=== PATIENT | female | born 1985 | race Caucasian/White ===

== ENCOUNTER 2025-02-21 09:55 | Outpatient (AMB) | payer OTHER, SELFPAY ==
--- NOTE | 2025-02-21 09:57 | A.OFFPC_ITS ---
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 Required: No Accompanied by: Self / Same As Patient Allergies No Known Allergies Allergy (Verified 02/21/25 10:03) Tobacco use date assessed: 02/21/25 Dental Screening Dental Screen Date: 02/21/25 Did you have a dental visit in the last 12 months?: Yes Did you have a dental problem in the last 6 months where you did not have access to dental care?: Yes Was dental information given to patient?: Patient has dentist HPI HPI Comments History of Present Illness Details Consent Patient was informed and verbally consented to the use of an ambient scribe for clinic note documentation during this visit. 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 - Family status: Mother of three childre n. - Substance use: Rare alcohol consumptio n, denies smoking and drug use. - Exercise: Engages in regular physical activity. - Nutrition: Eats a balanced diet, avoid s excessive carbohydrates and gluten due to intolerance. Family History: - No family history of cancer. Review of Systems - General: Denies fatigue or malaise. - Gastrointestinal: Reports intolerance to carbohydrates and gluten, causing lethargy and fullness. - Genitourinary: Denies urinary symptoms , reports absence of menstrual cycles due to contraceptive device. 10-point ROS reviewed and negative excep t as noted in HPI Past Medical History - No significant past medical history re ported. Health Maintenance - Screening mammogram recommended for east cancer prevention. - Pap smear recommended for cervical can cer screening. - Comprehensive metabolic panel to asses s overall health. - Lipid panel to evaluate cholesterol le vels. - Hepatitis B, Hepatitis C, and HIV scre ening for infectious disease prevention. - Thyroid function test to assess endocr ine health. - Vitamin D, B12, and folate levels to e valuate nutritional status. - Chlamydia, gonorrhea, and syphilis scr eening for sexually transmitted infections. Physical Exam General: Well-appearing, in no acute distress. Vital signs: Within normal limits. HEENT: Normocephalic, atraumatic. PERRLA, EOMI. Conjunctiva clear, sclera anicteric. Oropharynx clear, mucous membranes moist. TMs intact bilaterally. Neck: Supple, no lymphadenopathy, no thyromegaly, no JVD or carotid bruits. Cardiovascular: RRR, normal S1/S2, no murmurs, rubs, or gallops. Peripheral pulses 2+ and symmetric. No edema. Respiratory: Lungs clear to auscultation bilaterally, no wheezes, rales, or rhonchi. Normal effort. Abdomen: Soft, non-tender, non-distended. Normoactive bowel sounds. No hepatosplenomegaly, no masses. MSK: Full range of motion, no joint swelling or deformity. Normal gait. Skin: Warm, dry, intact. No rashes, lesions, or pallor. Neuro: Alert and oriented x3. Cranial nerves II-XII intact. Strength 5/5 throughout. Sensation intact. Reflexes 2+ symmetric. Normal coordination and gait. Psych: Appropriate mood and affect. Normal judgment and insight. Plan 1. Screening Mammogram - Schedule a screening mammogram at [facility]. 2. Pap Smear - Schedule a Pap smear with the [facility] team. 3. Preventative Care: Comprehensive [place] bolic Panel - Conduct comprehensive metabolic panel to assess liver, kidney function, and electrolytes. 4. Preventative Care: Lipid Panel - Perform lipid panel to evaluate choles terol and triglyceride levels. 5. Preventative Care: Hepatitis B, Hepat itis C, And Hiv Screening - Screen for Hepatitis B, Hepatitis C, a nd HIV as part of routine health maintenance. 6. Preventative Care: Thyroid Function T est - Check thyroid function to ensure wanda l endocrine health. 7. Preventative Care: Vitamin D, B12, An d Folate Levels - Assess Vitamin D, B12, and folate leve ls to evaluate nutritional status. 8. Preventative Care: Chlamydia, Gonorrh ea, And Syphilis Screening - Conduct screening for Chlamydia, gonor lizet, and syphilis as part of sexual health maintenance. Discussion Notes During the consultation, I discussed the importance of preventative care with the patient, including the need for a screening mammogram and Pap smear. We reviewed the comprehensive metabolic panel and other blood tests to be conducted, explaining their role in assessing overall health. I also informed her about the process for scheduling these tests and screenings, emphasizing the importance of maintaining regular health check-ups. Patient Instructions - Schedule a screening mammogram at [facility]. - Arrange for a Pap smear with the [facility] medicine team. - Follow up with the lab for blood tests as ordered. - Maintain a balanced diet and regular e xercise routine. Medical Decision Making In evaluating the patient's health, I prioritized preventative care measures due to her age and lack of recent medical evaluations. The decision to conduct a comprehensive metabolic panel and other screenings was based on the need to establish a baseline for her health status. The goal is to identify any potential health issues early and ensure she remains in good health, considering her active lifestyle and dietary habits. Total time spent caring for the patient today was 30 minutes. This includes time spent before the visit reviewing the chart, time spent documenting, and time spent reviewing laboratory results, diagnostic imaging, medications, performing a medically necessary evaluation, counseling on diagnoses, care coordination, ordering appropriate tests. [facility] Family History (Updated 02/21/25 @ 10:05 by Carlos Alberto Weber MA) Father Stroke Mother High cholesterol Social History Housing: House Patient Tobacco Use Status: Never used Tobacco service: No Current occupational status: employed Cognitive needs: No Hearing needs: No Vision needs: No Questionnaire PHQ-9 Over the last 2 weeks, how often have you been bothered by any of the following problems? 1. Little interest or pleasure in doing things: not at all 2. Feeling down, depressed, or hopeless: not at all 3. Trouble falling or staying asleep, or sleeping too much: not at all 4. Feeling tired or having little energy: not at all 5. Poor appetite or overeating: not at all 6. Feeling bad about yourself - or that you are a failure or have let yourself or your family down: not at all 7. Trouble concentrating on things, such as reading the newspaper or watching television: not at all 8. Moving or speaking so slowly that other people could have noticed. Or the opposite - being so fidgety or restless that you have been moving around a lot more than usual: not at all 9. Thoughts that you would be better off or of hurting yourself in some way: not at all Total score: 0 Source: Developed by Drs. Vick Mcdonald, Vikki Kapadia, Howard Schuler and colleagues, with an educational ovi from [employer]. Thrive Questionnaire Date Thrive assessed: 02/21/25 I am a: Patient What is your living situation today?: I have a steady place to live Within the past 12 months, did the food you bought not last and you didn't have the money to get more?: Never true Within the past 12 months, did you worry whether your food would run out before you got money to buy more?: Never true Do you have trouble paying for medicines?: No Do you have trouble getting transportation to medical appointments?: No Do you have trouble paying your heating and electricity bill?: I choose not to answer this question Do you have trouble taking care of your child, family member or friend?: No Are you currently unemployed and looking for a job?: No Are you interested in more education?: Yes Please select the resources that you would like help with: None Currently or been in a relationship where the following occur: No concerns reported THRIVE Score: 0 AUDIT C Alcohol Use Questionnaire (AUDIT-C) 1. How often do you have a drink containing alcohol?: Monthly or less 2. How many drinks containing alcohol do you have on a typical day when you are drinking?: 1 or 2 3. How often do you have six or more drinks on one occasion?: Never Total Score: 1 LIAN-7 AMB Questionnaire LIAN-7 Date LIAN - 7 assessed: 02/21/25 Feeling nervous, anxious, or on edge: 0 = Not at all Not being able to stop or control worryin = Not at all Worrying too much about different things: 0 = Not at all Trouble relaxin = Not at all Being so restless that it is hard to sit still: 0 = Not at all Becoming easily annoyed or irritable: 0 = Not at all Feeling afraid as if something awful might happen: 0 = Not at all Total LIAN-7 score (0-4 normal; 5-9 mild; 10-14 moderate; 15-21 severe): 0 Source: Developed by Drs. Vick Mcdonald, Howard Wilderoenke and colleagues, with an educational ovi from [employer]. Physical exam (Primary Care) Vital Signs: Last Vital Signs Temp 98 F 02/21/25 10:03 Pulse 64 02/21/25 10:03 Resp 16 02/21/25 10:03 BP 109/61 02/21/25 10:03 Pulse Ox 97 02/21/25 10:03 Oxygen Delivery Method Room Air 02/21/25 10:03 BMI result Body Mass Index 23.2 Tobacco/Smoking Status: Tobacco use Status Tobacco use date assessed 02/21/25 02/21/25 10:03 Patient Tobacco Use Status Never used Tobacco 02/21/25 10:03 PHQ-9: PHQ-9 Score PHQ-9: Total score 0 02/21/25 10:03 Thrive Assessment: Date of Thrive Assessment Date Thrive assessed 02/21/25 02/21/25 10:03 Currently or been in a relationship where the following occur: No concerns reported Coding Level of Care Code New Pt Level 4 (61798) Diagnoses Carbohydrate intolerance K90.49 Gluten intolerance K90.41 Screening for breast cancer Z12. Assessment & Plan Assessment & Plan (1) Carbohydrate intolerance: Code(s): K90.49 - Malabsorption due to intolerance, not elsewhere classified (2) Gluten intolerance: Code(s): K90.41 - Non-celiac gluten sensitivity (3) Screening for breast cancer: Code(s): Z12.39 - Encounter for other screening for malignant neoplasm of breast Plan Orders: Orders Hemoglobin A1c Today Z. - Encounter for screening, unspecified Hepatitis B Surface Antibody Today Z. - Encounter for screening, unspecified Hepatitis B Surface Antigen Today Z13. - Encounter for screening, unspecified Hepatitis C Antibody Today Z13. - Encounter for screening, unspecified HIV Ab/Ag Today Z13. - Encounter for screening, unspecified UA CC w/rflx Micro + Cult Today Z13. - Encounter for screening, unspecified Syphilis Screen Today Z13. - Encounter for screening, unspecified Other Ref Test - Misc Today Z13. - Encounter for screening, unspecified MM screening mammo BI Today Z12.31 - Encounter for screening mammogram for malignant neoplasm of breast Complete Blood Count Auto Diff Today Z13. - Encounter for screening, unspecified Comprehensive Met. Panel Today Z13.9 - Encounter for screening, unspecified Magnesium Today Z13.9 - Encounter for screening, unspecified TSH reflex Free T4 Today Z13.9 - Encounter for screening, unspecified Vitamin B12 and Folate Today Z13.9 - Encounter for screening, unspecified Vitamin D 1,25 dihydroxy Today Z13.9 - Encounter for screening, unspecified CT NG by PCR Urine Today Z13.9 - Encounter for screening, unspecified
[2025-02-21 10:03] VITALS: BP 109/61; PULSE 64; RESP 16; TEMP 36.6; O2SAT 97; BMI 23.2
== END 2025-02-21 10:26 | disposition home or self-care (01) ==
PROVIDERS: Visit Provider Student in an Organized Health Care Education/Training Program
DX: K90.49 Malabsorption due to intolerance, not elsewhere classified (principal); K90.41 Non-celiac gluten sensitivity; Z12.39 Encounter for other screening for malignant neoplasm of breast

== ENCOUNTER 2025-02-21 09:55 | Outpatient (REF) | payer OTHER, SELFPAY ==
[2025-02-21 13:14] LABS: Appearance Urine Clear; Glucose Urine UA Negative (Negative); PH 7.5 (5.0-9.0); Specific Gravity - Urine <= 1.005 (1.005-1.025); UMIC TRIGGER UACC YES
[2025-02-21 13:16] LABS: MANUAL DIFF FLAG NO
[2025-02-21 13:29] LABS: Hematocrit 41.3 % (37.0-47.0); Hemoglobin 14.2 g/dl (12.0-16.0); Imm Gran Abs Auto 0.01 X10*3/uL (0.00-0.03); Imm Gran Pct Auto 0.2 % (0.0-0.4); Lymphocytes Absolute Auto 1.3 X10*3/uL (1.2-4.9); Mean Corpuscular HGB Conc 34.4 g/dl (31.0-35.0); Mean Corpuscular Hemoglobin 30.7 pg (27.0-33.0); Mean Corpuscular Volume 89.4 fL (80.0-98.0); NRBC Abs Auto 0.000 X10*3/uL (0.0-0.012); NRBC Pct Auto 0.0 /100WBC (0.0-0.2); Platelet Count 203 X10*3/uL (160-400); Red Blood Count 4.62 X10*6/uL (4.20-5.50); White Blood Count 4.5 X10*3/uL (4.8-10.8)
[2025-02-21 14:15] LABS: Folate 12.7 ng/mL (> or = 4.0); Vitamin B12 681 pg/mL (200-900)
[2025-02-21 14:16] LABS: Alanine Aminotransferase 20 U/L (0-31); Albumin Level 4.9 g/dL (3.5-5.0); Alkaline Phosphatase 42 U/L (39-117); Anion Gap 10 (12-20); Aspartate Amino Transferase 26 U/L (5-31); Blood Urea Nitrogen 15 mg/dL (9-16); Calcium 9.8 mg/dL (8.4-10.2); Carbon Dioxide 27 mmol/L (22-29); Chloride 108 mmol/L (96-108); Estimated Glomerular Filt Rate > 60; Magnesium 2.2 mg/dL (1.6-2.6); Potassium 4.5 mmol/L (3.3-5.1); Sodium 140 mmol/L (135-145); Total Protein 7.4 g/dL (6.5-8.0)
[2025-02-21 16:19] LABS: CT PCR Urine NOT DETECTED (Not Detect.); NG PCR Urine NOT DETECTED (Not Detect.)
[2025-02-22 03:41] LABS: Syphilis Screen Nonreactive (Nonreactive)
[2025-02-22 03:51] LABS: HBS Num1 0.97 mIU/mL (0-7.99); HBsAGNum1 0.47 S/CO (0.00-0.99); HIV Num 1 0.04 S/CO (0.00-0.99); Hepatitis B Surface Antigen Negative (Negative); ~HepC Num1 0.08 S/CO (0.00-0.79); ~Hepatitis B Surface Antibody NONREACTIVE (Nonreactive); ~Hepatitis C Antibody Nonreactive (Nonreactive)
[2025-02-25 12:42] LABS: VITAMIN D (1,25 OH) D3 42 pg/mL; Vit D (1,25-Dihydroxy) Total 42 pg/mL (18-72); Vitamin D (1,25 OH) D2 <8 pg/mL
== END 2025-02-21 09:56 | disposition home or self-care (01) ==
LOC: HO.HKASLDS 09:55
PROVIDERS: PCP Student in an Organized Health Care Education/Training Program; Visit Provider Student in an Organized Health Care Education/Training Program
DX: Z13.9 Encounter for screening, unspecified (principal); Z12.39 Encounter for other screening for malignant neoplasm of breast; K90.49 Malabsorption due to intolerance, not elsewhere classified; K90.41 Non-celiac gluten sensitivity
CPT/HCPCS: 80053; 81001; 81003; 82607; 82652; 82746; 83036; 83735; 84443; 85025; 86631; 86632; 86706; 86780; 86803; 87340; 87389; 87491; 87591

== ENCOUNTER 2025-03-09 16:25 | Outpatient (AMB) | payer OTHER, SELFPAY ==
[2025-03-09 16:30] VITALS: BP 108/64; PULSE 69; RESP 16; TEMP 36.7; O2SAT 96; BMI 22.9
--- NOTE | 2025-03-09 16:30 | A.OFFPC_ITS ---
Vital Signs 03/09/25 16:30 Height 5 ft 3.78 in Weight 132 lb 8 oz BMI 22.9 BP 108/64 Blood Pressure Location Rt brachial Position Sitting Respiration 16 Pulse 69 Pulse Source Pulse Oximeter Temp 98.1 F Temp Source Oral Pulse Oximetry (%) 96 Oxygen Delivery Method Room Air Intake Visit Reasons: 2 wk f/u Allergies No Known Allergies Allergy (Verified 03/09/25 16:31) Medication List - Last Reconciled 03/10/25 by Allen Fu MD No Known Home Meds Tobacco use date assessed: 02/21/25 Dental Screening Dental Screen Date: 02/21/25 HPI HPI Comments History of Present Illness Details History of Present Illness The patient is a 40-year-old female presenting for review of laboratory results and health maintenance. Vaginal Lump: The patient reports noticing a lump in the vaginal area a few weeks ago. She describes it as a mobile lump located on the side, internally but not high up. It is not associated with pain or bleeding, and its prominence seems to vary, feeling more prevalent on some days. The patient expressed concern after researching her symptoms online. Social History: - Family Status: The patient has three c tawandafrankie. - Exercise: She goes to the gym. - Level of Activity: Describes herself a s busy and active. Diagnostic Results: - Complete blood count: Normal, with no evidence of anemia or coagulation issues. - Comprehensive metabolic panel: Normal sodium, potassium, chloride, and renal function. - Hemoglobin A1c: Normal. - Calcium: Normal. - Magnesium: Normal. - Liver function tests: Normal. - Vitamin B12: Normal. - Thyroid function tests: Normal. - Folate: Normal. - Urinalysis: Normal. - Lipid panel: pending Past Medical History Health Maintenance - The patient will schedule an appointme nt for a Pap smear. - The patient was advised to call and ch massimo on the status of her mammogram order and to schedule the procedure. - Staff will provide the patient with th e necessary contact information for scheduling her mammogram. [facility] Family History (Updated 02/21/25 @ 10:05 by Carlos Alberto Weber MA) Father Stroke Mother High cholesterol Social History Housing: House Patient Tobacco Use Status: Never used Tobacco service: No Current occupational status: employed Cognitive needs: No Hearing needs: No Vision needs: No Questionnaire Thrive Questionnaire Date Thrive assessed: 02/21/25 I am a: Patient What is your living situation today?: I have a steady place to live Within the past 12 months, did the food you bought not last and you didn't have the money to get more?: Never true Within the past 12 months, did you worry whether your food would run out before you got money to buy more?: Never true Do you have trouble paying for medicines?: No Do you have trouble getting transportation to medical appointments?: No Do you have trouble paying your heating and electricity bill?: I choose not to answer this question Do you have trouble taking care of your child, family member or friend?: No Do you have trouble with day-to-day activities such as bathing, preparing meals, shopping, managing finances, etc.?: No Are you currently unemployed and looking for a job?: No Are you interested in more education?: Yes Please select the resources that you would like help with: None Currently or been in a relationship where the following occur: No concerns reported THRIVE Score: 0 LIAN-7 AMB Questionnaire LIAN-7 Date LIAN - 7 assessed: 02/21/25 Source: Developed by Drs. Vick Mcdonald, Vikki Kapadia, Howard Schuler and colleagues, with an educational ovi from [employer] Review of Systems Narrative Review of Systems - Genitourinary: Reports a mobile lump inside the vagina, present for a few weeks. - Denies pain or bleeding. - Constitutional: Reports feeling well. 10-point ROS reviewed and negative except as noted in HPI Physical exam (Primary Care) Vital Signs: Last Vital Signs Temp 98.1 F 03/09/25 16:30 Pulse 69 03/09/25 16:30 Resp 16 03/09/25 16:30 BP 108/64 03/09/25 16:30 Pulse Ox 96 03/09/25 16:30 Oxygen Delivery Method Room Air 03/09/25 16:30 BMI result Body Mass Index 22.9 Tobacco/Smoking Status: Tobacco use Status Tobacco use date assessed 02/21/25 03/09/25 16:40 Patient Tobacco Use Status Never used Tobacco 03/09/25 16:40 Thrive Assessment: Date of Thrive Assessment Date Thrive assessed 02/21/25 03/09/25 16:40 Currently or been in a relationship where the following occur: No concerns reported Narrative Physical Exam General: Well-appearing, in no acute distress. Vital signs: Within normal limits. HEENT: Normocephalic, atraumatic. PERRLA, EOMI. Conjunctiva clear, sclera anicteric. Oropharynx clear, mucous membranes moist. TMs intact bilaterally. Neck: Supple, no lymphadenopathy, no thyromegaly, no JVD or carotid bruits. Cardiovascular: RRR, normal S1/S2, no murmurs, rubs, or gallops. Peripheral pulses 2+ and symmetric. No edema. Respiratory: Lungs clear to auscultation bilaterally, no wheezes, rales, or rhonchi. Normal effort. Abdomen: Soft, non-tender, non-distended. Normoactive bowel sounds. No hepatosplenomegaly, no masses. MSK: Full range of motion, no joint swelling or deformity. Normal gait. Skin: Warm, dry, intact. No rashes, lesions, or pallor. Neuro: Alert and oriented x3. Cranial nerves II-XII intact. Strength 5/5 throughout. Sensation intact. Reflexes 2+ symmetric. Normal coordination and gait. Psych: Appropriate mood and affect. Normal judgment and insight. Coding Level of Care Code Est Pt Level 3 (12988) Diagnoses Abnormal urine R82.90 Vaginal lump N94.9 Assessment & Plan Assessment & Plan (1) Abnormal urine: Code(s): R82.90 - Unspecified abnormal findings in urine (2) Vaginal lump: Code(s): N94.9 - Unspecified condition associated with female genital organs and menstrual cycle Plan Consent Patient was informed and verbally consented to the use of an ambient scribe for clinic note documentation during this visit. Plan 1. Vaginal Lump - The patient's reported vaginal lump will be evaluated during her upcoming appointment for a Pap smear. - A thorough bimanual pelvic exam will be performed to assess the uterus, cervix, and ovaries, and to palpate for any abnormalities prior to the speculum examination. Discussion Notes I reviewed the patient's recent lab results with her, all of which were normal, including her complete blood count, comprehensive metabolic panel, HbA1c, vitamin B12, thyroid function, and urinalysis. We discussed her new complaint of a vaginal lump, and I reassured her that I would perform a thorough pelvic exam to investigate it when she comes in for her Pap smear. I explained that the pelvic exam would involve assessing her uterus, cervix, and ovaries before proceeding with the speculum exam for the Pap test. We also addressed the need for routine health maintenance, specifically a mammogram and Pap smear. I instructed her on the next steps to schedule these appointments. I commended her for her active lifestyle and encouraged her to continue her current habits for long-term health. Patient Instructions - Your recent lab work, including blood counts, kidney and liver function, and thyroid levels, all look great. - Please speak with Nancy at the front office coordinator to schedule an appointment for a Pap smear. - During your Pap smear appointment, we will also examine the lump you have noticed. - Nancy will provide you with the phone number to schedule your mammogram. - Please call them to check on the order and set up your appointment. - Continue your active lifestyle, as it is beneficial for your health. Medical Decision Making The patient, a 40-year-old female, presented primarily for a review of recent lab results and to discuss health maintenance. Her laboratory studies were comprehensively normal, providing reassurance regarding her overall health status. She introduced a new complaint of a painless, mobile vaginal lump noted a few weeks prior. Given that the patient is also due for a routine Pap smear, the most efficient and clinically appropriate course of action is to combine the evaluation of the lump with the scheduled screening. I will perform a thorough bimanual pelvic exam to assess the adnexa and uterus before the speculum exam, which will allow for direct evaluation of the patient's concern. The plan also includes ensuring she completes her mammogram. Total time spent caring for the patient today was 20 minutes. This includes time spent before the visit reviewing the chart, time spent documenting, and time spent reviewing laboratory results, diagnostic imaging, medications, performing a medically necessary evaluation, counseling on diagnoses, care coordination.. Orders: Orders Lipid Panel 02/21/25 Z13.9 - Encounter for screening, unspecified
== END 2025-03-09 16:57 | disposition home or self-care (01) ==
LOC: HO.HMCFMS 16:26
PROVIDERS: PCP Student in an Organized Health Care Education/Training Program; Visit Provider Student in an Organized Health Care Education/Training Program
DX: R82.90 Unspecified abnormal findings in urine (principal); N94.9 Unspecified condition associated with female genital organs and menstrual cycle

== ENCOUNTER → 2025-03-09 16:25 | Outpatient (BNVA) | payer OTHER, SELFPAY | PROVIDERS: PCP Family Medicine; Visit Provider Student in an Organized Health Care Education/Training Program | DX: N89.8 Other specified noninflammatory disorders of vagina (principal); R82.90 Unspecified abnormal findings in urine | CPT/HCPCS: 99212 ==

== ENCOUNTER 2025-03-28 16:44 | Outpatient (REF) | payer OTHER, SELFPAY | END 2025-03-28 16:45 | disposition home or self-care (01) | LOC: HO.LNP 16:44 | PROVIDERS: PCP Family Medicine; Visit Provider Student in an Organized Health Care Education/Training Program | DX: R87.619 Unspecified abnormal cytological findings in specimens from cervix uteri (principal); Z12.4 Encounter for screening for malignant neoplasm of cervix | CPT/HCPCS: 87626; 88175 ==